=== PATIENT | female | born 1945 | race Caucasian/White ===

== ENCOUNTER → 2016-09-07 | Outpatient (CLI) | payer BC | DX: Z12.31 Encounter for screening mammogram for malignant neoplasm of breast (principal); Z90.710 Acquired absence of both cervix and uterus | CPT/HCPCS: G0202 ==

== ENCOUNTER → 2021-01-09 | Outpatient (CLI) | payer MEDICARE, OTHER | LOC: MAMO 08:23 | DX: Z12.31 Encounter for screening mammogram for malignant neoplasm of breast (principal) | CPT/HCPCS: 77063; 77067 ==

== ENCOUNTER → 2021-08-08 | Outpatient (CLI) | payer MEDICARE, OTHER ==
[~2021-08-08] VITALS: Ht 157.5 cm; Wt 64.9 kg
== END ==
LOC: OPSV 12:50
DX: M81.0 Age-related osteoporosis without current pathological fracture (principal)
CPT/HCPCS: 96365; J3489

== ENCOUNTER → 2022-01-27 | Outpatient (CLI) | payer MEDICARE, OTHER | LOC: MAMO 01-19 11:00 | DX: Z12.31 Encounter for screening mammogram for malignant neoplasm of breast (principal) | CPT/HCPCS: 77063; 77067 ==

== ENCOUNTER → 2022-02-20 | Day surgery (SDC) | payer MEDICARE, OTHER ==
[~2022-02-20] MED LIST: AMLODIPINE BESYL5 MG PO; B12-FOLIC ACID1 EACH PO; HYDROCHLOROTHIA25 MG PO; METOPROLOL SUCC25 MG PO; POTASSIUM CHLO20 ME2 PO; SYNTHROID75 MCG PO; VITAMIN D21250 MCG PO; ZETIA10 MG PO
== END | disposition home or self-care (01) ==
LOC: OR 06:32
DX: Z12.11 Encounter for screening for malignant neoplasm of colon (principal); K57.30 Diverticulosis of large intestine without perforation or abscess without bleeding; I10 Essential (primary) hypertension; E03.9 Hypothyroidism, unspecified; Z86.010 Personal history of colon polyps; Z88.8 Allergy status to other drugs, medicaments and biological substances
CPT/HCPCS: J2704